=== PATIENT | female | born 1950 | race Caucasian/White ===

== ENCOUNTER 2023-09-28 12:06 | Emergency (ER) | payer MEDICARE, SELFPAY ==
[2023-09-28 12:09] VITALS: BP 141/88
[2023-09-28 13:18] LABS: % Basophils 0.8 % (0-2); % Eosinophils 1.5 % (0-6); % Immature Granulocytes 0.2 % (0-0.5); % Lymphocytes 19.1 % (20.5-51.1); % Monocytes 10.4 % (1.7-9.3); Absolute Eosinophils 0.1 10^3/uL (0-0.7); Absolute Monocytes 0.6 10^3/uL (0.1-0.6); Absolute Neutrophils 3.6 10^3/uL (1.4-6.5); Hematocrit 39.8 % (37.0-47.0); Hemoglobin 13.2 g/dL (12.0-16.0); Mean Corp Hgb Conc. 33.2 g/dL (33.0-37.0); Mean Corpuscular Hgb 30.7 pg (27.0-31.0); Mean Corpuscular Volume 92.6 fL (81.0-99.0); Mean Platelet Volume 10.1 fL (7.4-10.4); Nucleated Red Blood Cells % 0 %; Platelet Count 143 10^3/uL (130-400); Red Cell Dist. Width 12.5 % (11.5-14.5); White Blood Cell Count 5.3 10^3/uL (4.8-10.8)
--- NOTE | 2023-09-28 13:47 | ED.GENMED ---
History of Present Illness
General
Chief Complaint: Chest Pain
Source: patient
Exam Limitations: none
Time Seen by Provider: 09/28/23 13:31
Nursing documentation reviewed up to this point in time: agreed with
Travel History
Have you had any contact with someone who has COVID-19?: No
Do you have any symptoms of coronavirus? Fever > 100 degrees, chills, cough, shortness of breath, sore throat, loss of taste or smell, muscle aches, or headache?: No
History of Present Illness
History of Present Illness:
73 yr old female presents to the ED for evaluation of chest pain. 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 She reports for the past 2 evenings while getting ready for bed she had had episodes of chest pain. Last night the
episode was more intense than the night previous night . It lasted from 20 minutes and she did feel little short of breath with it. She had some radiation to her back and was very sweaty with the pain.
She denies any symptoms now. She has a history of gastroparesis and reflux and was not sure if this was a reflux. She does not get any symptoms with exertion or throughout the day.
She has hx of carotid blockages which a a neurologist is watching. She is supposed to take an aspirin a day but has not taken the past several days.
Review of Systems
Review of Systems
Allergies reviewed?: Yes
All Other Systems: ROS reviewed and negative except as documented in HPI and ROS
Constitutional: Reports no symptoms
Respiratory: Reports no symptoms; Denies trouble breathing
Cardiac: Reports chest pain (cp at night episode ); Denies diaphoresis, palpitations or syncope
ABD/GI: Reports no symptoms
: Reports no symptoms
Musculoskeletal: Reports no symptoms
Skin: Reports no symptoms
Neurological: Reports no symptoms
Psychiatric: Reports no symptoms
Phy Exam
General Physical Exam
General Presentation: no apparent distress
General age: appears stated age
General Skin: warm and dry
General Habitus: elderly
General Mental: alert
General Hydration: appears well hydrated
Cardiovascular Exam
Cardiovascular Exam: regular rate/rhythm, no murmur and normal peripheral pulses
Pulmonary Exam
Pulmonary Exam: lungs clear and no respiratory distress
Neurological Exam
Neurological Exam: alert and oriented x3
Musculoskeletal Exam
Musculoskeletal Exam: full ROM
Skin Exam
Skin Exam: normal color and warm/dry
Psychiatric Exam
Psychiatric Exam: normal mood/affect
Scores
Heart Score for Chest Pain Patients
STEMI patient?: Not applicable
Course
Orders/Labs/Results
Orders:
Orders
09/28/23 12:13
ECG [Electrocardiogram (*1)] Urgent
Reason for Study: Chest Pain
EKG- Treatment ONCE
09/28/23 13:08
Complete Blood Count/With Diff Urgent
Comprehensive Metabolic Panel Urgent
Troponin I Urgent
09/28/23 14:12
Chest [CR Chest - 2 Views ] Urgent
Comment:
Reason For Exam: cp
09/28/23 14:13
Cardiac Monitoring- Treatment ONCE
09/28/23 14:16
Aspirin Chewable [Low Strength Aspirin] 324 mg PO NOW STA
09/28/23 16:13
Electrocardiogram (*1) Stat
Reason for Study: Other
Other Reason for Exam: chest pain
EKG- Treatment ONCE
09/28/23 16:31
Troponin I Urgent
Abnormal Lab Results
09/28/23
13:08
Absolute Lymphs (auto) 1.0 L 10^3/uL
(1.2-3.4)
Lymphocytes % 19.1 L %
(20.5-51.1)
Monocytes % 10.4 H %
(1.7-9.3)
Glucose 100 H mg/dl
(70-99)
AST 44 H U/L
(14-36)
ALT 41 H U/L
(0-35)
09/28/23 13:08
09/28/23 13:08
Vital Signs
Initial and Last Documented VS:
Initial Vital Signs
Temp Pulse Resp BP Pulse Ox
98.2 F 85 18 141/88 99
09/28/23 12:09 09/28/23 12:09 09/28/23 12:09/28/23 12:09 09/28/23 12:09
Last Documented Vital Signs
Temp Pulse Resp BP Pulse Ox
98.2 F 85 18 141/88 99
09/28/23 12:09 09/28/23 12:09 09/28/23 12:09/28/23 12:09 09/28/23 12:09
Commercial Decorator consulted with Physician
Commercial Decorator consulted with physician?: Yes
Name of Physician Consulted: Chris
MDM/Problems Addressed
Differential Diagnosis Includes:
not limited to: [place] , muscular chest pain
MDM/Problems Addressed:
Patient is a 73-year-old female visiting from [place] who describes having chest pain for the past several nights while getting dressed and ready for bed. She had no history of cardiac disease. She has no symptoms during the day and has been
asymptomatic here in the ER. Patient was monitored here no acute distress no acute findings on EKG normal cardiac troponins x 2. Vital signs stable normal labs. Patient is here in the area until October 17 will give patient cardiology here however
with 2 negative prior troponins and no acute concerning EKG findings patient be asymptomatic safer discharge home.
*Radiology
Radiology exam reviewed: radiology read reviewed
*Pulse Oximetry
Patient hypoxic: no
*EKG
Interpreted by ED Provider?: Yes
Heart Rate: 74
Rate: normal
Rhythm: sinus
Ischemia: other (Repeat EKG done at 1631 normal sinus rhythm heart rate 71 no acute findings/no changes)
*Critical Care Note
Total Time (30-74mins, 75-104mins- exclusive of procedures): Not Applicable
ED Attending Note
-
Portions of this chart may have been created with voice recognition software.� Occasional wrong word or��sound alike� substitutions may have occurred due to the inherent limitations of voice recognition software.
Discharge Plan
Departure
Patient Disposition: Home (Routine Discharge)
Date of Disposition: 09/28/23
Time of Disposition: 17:35
Patient with high blood pressure during this ER visit?: No
Covid-19: Not Applicable
Discharge Problem:
Chest pain
Instructions: Chest Pain [facility] Follow Up, Chest Pain NON-[facility] Senior Risk Analyst Follow Up
Referrals:
Naman Vickers MD [Active] -
UNKNOWN - PT DOES,NOT KNOW [Family Provider] -
Activity Restrictions/Additional Instructions:
As discussed you may follow-up with [facility] however in addition you will need to follow-up with cardiology in your home town.
Return if any worsening of symptoms
Interventions
Interventions:
*General Assessment Last Done: 09/28/23 13:05
ED- Cardiac Assessment Last Done: 09/28/23 13:15
Discharge Date and Time
Print Language: ROMANIAN
[2023-09-28 13:49] LABS: ALT (SGPT) 41 U/L (0-35); AST (SGOT) 44 U/L (14-36); Albumin 4.4 g/dl (3.5-5.0); Alkaline Phosphatase 99 U/L (38-126); Blood Urea Nitrogen 16 mg/dl (7-17); Calcium 10.1 mg/dl (8.4-10.2); Carbon Dioxide 29 mmol/L (22-30); Chloride 104 mmol/L (98-107); Glucose 100 mg/dl (70-99); Potassium 4.6 mmol/L (3.5-5.1); Sodium 137 mmol/L (135-145); Total Bilirubin 0.6 mg/dl (0.2-1.3); Total Protein 6.8 g/dl (6.3-8.2); eGFR > 60.00
[2023-09-28 13:59] LABS: Troponin I < 0.012 ng/ml
[2023-09-28 14:02] VITALS: BP 116/56
[2023-09-28] MEDS: LOW STRENGTH ASPIRIN 324 MG PO (14:26)
[2023-09-28 14:28] VITALS: BMI 30.4
[2023-09-28 16:00] VITALS: BP 59/19
[2023-09-28 16:27] VITALS: BP 129/69
[2023-09-28 17:00] VITALS: BP 124/66
[2023-09-28 17:07] LABS: Troponin I < 0.012 ng/ml
[2023-09-28 18:15] VITALS: BP 124/66
== END 2023-09-28 18:15 | disposition home or self-care (01) ==
LOC: EMR 12:06
PROVIDERS: Nurse Practitioner; EMERGENCY PHYSICIAN Student in an Organized Health Care Education/Training Program
DX: R07.89 Other chest pain (principal); K21.9 Gastro-esophageal reflux disease without esophagitis
CPT/HCPCS: 99285; 71046; 80053; 84484; 85025; 93005

== ENCOUNTER → 2023-10-04 11:40 | Outpatient (REF) | payer MEDICARE, SELFPAY | LOC: DHCBC/DCA 11:40 | PROVIDERS: ATTENDING PHYSICIAN Nuclear Medicine Nuclear Cardiology | DX: R07.2 Precordial pain (principal); R61 Generalized hyperhidrosis; E78.2 Mixed hyperlipidemia; Z82.49 Family history of ischemic heart disease and other diseases of the circulatory system | CPT/HCPCS: 78452; 93017; A9500 ==